=== PATIENT | male | born 1945 | race Caucasian/White ===

== ENCOUNTER 2023-07-26 16:43 | Inpatient (IN) | payer MEDICARE, BC ==
[~2023-07-26] VITALS: Ht 177.8 cm; Wt 94.3 kg
[2023-07-26] MEDS ORDERED: IV NORMAL SALINE 1000 ML BAG IV ONE (17:00)
[2023-07-26 17:35] LABS: BASOPHILS # (AUTO) 0.1 K/UL (0.0-0.2); BASOPHILS % (AUTO) 0.7 % (0.0-2.0); EOSINOPHILS # (AUTO) 0.1 K/uL (0.0-0.7); EOSINOPHILS % (AUTO) 1.1 % (0.0-7.0); HEMATOCRIT 29.2 % (36.7-47.1); HEMOGLOBIN 9.8 g/dL (12.5-16.3); LYMPHOCYTES % (AUTO) 11.1 % (20.5-51.5); MEAN CORPUSCULAR HEMOGLOBIN 31.5 uug (23.8-33.4); MEAN CORPUSCULAR HGB CONC 34 g/dL (32.5-36.3); MONOCYTES # (AUTO) 0.8 K/uL (0.1-1.30); MONOCYTES % (AUTO) 9.8 % (0.0-11.0); NEUTROPHILS # (AUTO) 6.7 K/uL (1.8-8.9); NEUTROPHILS % (AUTO) 77.3 % (38.5-71.5); PLATELET COUNT (AUTO) 164 K/uL (152-348); RED CELL DISTRIBUTION WIDTH 14.3 % (12.1-16.2); WHITE BLOOD COUNT (AUTO) 8.6 K/uL (3.6-10.2)
[2023-07-26 17:39] LABS: DIFFERENTIAL COMMENT 1
[2023-07-26 17:42] LABS: CALCIUM 8.7 mg/dL (8.5-10.1); CARBON DIOXIDE 23 mmol/L (21-32); CHLORIDE 102 mmol/L (98-107); CREATININE 2.1 mg/dL (0.6-1.3); GLUCOSE 137 mg/dL (74-106); POTASSIUM 5.2 mmol/L (3.5-5.1); SODIUM SERUM 135 mmol/L (136-145); UREA NITROGEN, BLOOD 40 mg/dL (7-18)
[2023-07-26 17:51] LABS: ALANINE AMINOTRANSFERASE 24 U/L (16-63); ALBUMIN 3.4 g/dL (3.4-5.0); ALKALINE PHOSPHATASE 58 U/L (50-136); ASPARTATE AMINOTRANSFERASE 12 U/L (15-37); BILIRUBIN,DIRECT 0.1 mg/dL (0.0-0.2); BILIRUBIN,TOTAL 0.3 mg/dL (0.2-1.0); LIPASE 73 U/L (73-393); TOTAL PROTEIN, SERUM 6.4 g/dL (6.4-8.2)
[2023-07-26] MEDS ORDERED: MAGN64TA9 PO (18:23)
[2023-07-26] MEDS ORDERED: AZEL205. BNOSTRILS (18:23)
[2023-07-26] MEDS ORDERED: ALIR75PE6 SQ (18:23)
[2023-07-26] MEDS ORDERED: HYDR100T27 PO (18:23)
[2023-07-26] MEDS ORDERED: UBID100C13 PO (18:23)
[2023-07-26] MEDS ORDERED: SAW500CA2 PO (18:23)
[2023-07-26] MEDS ORDERED: ASPI81TA31 PO (18:23)
[2023-07-26] MEDS ORDERED: CYAN100020 SL (18:23)
[2023-07-26] MEDS ORDERED: BACL5TAB PO (18:23)
[2023-07-26] MEDS ORDERED: LOVAZA PO (18:23)
[2023-07-26] MEDS ORDERED: NIAC10002 PO (18:23)
[2023-07-26] MEDS ORDERED: CREA100P6 MC (18:23)
[2023-07-26] MEDS ORDERED: GLUCOSAMINE (18:23)
[2023-07-26] MEDS ORDERED: TESTIM (18:23)
[2023-07-26] MEDS ORDERED: PROCRIT (18:23)
[2023-07-26] MEDS ORDERED: DULO30CA2 PO (18:23)
[2023-07-26] MEDS ORDERED: PRED1TAB PO (18:23)
[2023-07-26] MEDS ORDERED: DUTASTERIDE (18:23)
[2023-07-26] MEDS ORDERED: MILK500C PO (18:23)
[2023-07-26] MEDS ORDERED: D3 PO (18:23)
[2023-07-26] MEDS ORDERED: AMLO-212 PO (18:23)
[2023-07-26] MEDS ORDERED: MYCO500T PO (18:23)
[2023-07-26] MEDS ORDERED: BISO1TAB8 PO (18:23)
[2023-07-26] MEDS ORDERED: TAMS-3 PO (18:23)
[2023-07-26] MEDS ORDERED: ACET325T53 PO (18:23)
[2023-07-26] MEDS ORDERED: [UNRECOGNIZED DRUG - CODE] MC (18:23)
[2023-07-26] MEDS ORDERED: MORPHINE SULFATE 2 MG/1 ML DISP.SYRIN IV PRN (21:45)
[2023-07-26] MEDS ORDERED: ONDANSETRON 4 MG/2 ML VIAL IV PRN (21:45)
[2023-07-26 22:25] VITALS: BP 138/65; TEMP 98; O2SAT 98
[2023-07-26] MEDS: IV D5/ 0.9% NACL 1,000 ML IV PRN (23:14)
[2023-07-27 02:48] LABS: *BILIRUBIN,URIN NEGATIVE (NEGATIVE); *BLOOD, URINE NEGATIVE (NEGATIVE); *CLARITY,URINE CLEAR (CLEAR); *COLOR,URINE YELLOW (YELLOW); *KETONES,URINE NEGATIVE (NEGATIVE); *PROTEIN,URINE 1+ (NEGATIVE); *UROBILINOGEN,URINE 0.2 E.U./dl (NORMAL); LEUKOCYTE ESTERASE ,URINE NEGATIVE (NEGATIVE); NITRITE, URINE NEGATIVE (NEGATIVE); UGLUCOSE NEGATIVE (NEGATIVE)
[2023-07-27 04:00] VITALS: BP 138/69; TEMP 98.6; O2SAT 96
[2023-07-27 04:55] VITALS: BP 138/69; TEMP 98.6; O2SAT 98
[2023-07-27] MEDS ORDERED: CEFAZOLIN 1 G VIAL ONE (07:10)
[2023-07-27] MEDS ORDERED: PROPOFOL 200 MG/20 ML BOTTLE ONE (07:10)
[2023-07-27] MEDS ORDERED: EPHEDRINE SULFATE 50 MG/ML AMPUL ONE (07:10)
[2023-07-27] MEDS ORDERED: GLYCOPYRROLATE 0.2 MG/ML VIAL ONE (07:10)
[2023-07-27] MEDS ORDERED: VECURONIUM BROMIDE 10 MG VIAL IV ONE (07:10)
[2023-07-27] MEDS ORDERED: NEOSTIGMINE METHYLSULFATE 10 MG/10 ML VIAL ONE (07:10)
[2023-07-27] MEDS ORDERED: ONDANSETRON 4 MG/2 ML VIAL ONE (07:10)
[2023-07-27] MEDS ORDERED: DEXAMETHASONE SOD PHOSPHATE 4 MG INJ ONE (07:10)
[2023-07-27] MEDS ORDERED: LIDOCAINE-MPF 2% 5 ML VIAL ONE (07:10)
[2023-07-27] MEDS ORDERED: SEVOFLURANE 250 ML BOTTLE ONE (08:43)
[2023-07-27] MEDS ORDERED: FENTANYL CITRATE 100 MCG/2 ML AMPUL ONE ×2 (08:49→09:47)
[2023-07-27] MEDS: PANTOPRAZOLE SODIUM 40 MG VIAL IV SCH (09:00)
[2023-07-27] MEDS ORDERED: BACITRACIN/POLYMYXIN B OINT 15 GM TUBE ONE (09:05)
[2023-07-27] MEDS ORDERED: BUPIVACAINE/EPI PF 0.25% 10 ML VIAL IJ ONE (09:05)
[2023-07-27] MEDS ORDERED: BUPIVACAINE PF 0.5% 30 ML VIAL ONE (09:05)
[2023-07-27] MEDS ORDERED: HYDROCODONE/APAP 10-325 MG TABLET PO PRN (10:30)
[2023-07-27] MEDS ORDERED: ACETAMINOPHEN 325 MG TABLET ONE (10:31)
[2023-07-27 11:57] VITALS: BP 145/66; TEMP 97.9; O2SAT 97
[2023-07-27] MEDS ORDERED: TAMSULOSIN HCL 0.4 MG CAP.SR.24H PO ONE (12:00)
[2023-07-27] MEDS ORDERED: ACETAMINOPHEN 325 MG TABLET PO PRN (12:30)
[2023-07-27] MEDS ORDERED: HCTZ PO SCH (12:30)
[2023-07-27] MEDS ORDERED: MAGNESIUM CHLORIDE 64 MG TABLET.SA PO SCH (12:30)
[2023-07-27] MEDS ORDERED: BISOPROLOL FUMARATE PO SCH (12:30)
[2023-07-27] MEDS ORDERED: [UNRECOGNIZED DRUG - OTHER] PO SCH (12:30)
[2023-07-27] MEDS: IV D5/ 0.9% NACL 1,000 ML IV PRN (13:11)
[2023-07-27 13:23] LABS: BASOPHILS % (AUTO) 0.3 % (0.0-2.0); EOSINOPHILS % (AUTO) 0.1 % (0.0-7.0); HEMATOCRIT 28.9 % (36.7-47.1); HEMOGLOBIN 9.5 g/dL (12.5-16.3); LYMPHOCYTES # (AUTO) 0.4 K/uL (0.8-4.8); MEAN CORPUSCULAR HEMOGLOBIN 31.3 uug (23.8-33.4); MEAN CORPUSCULAR HGB CONC 33 g/dL (32.5-36.3); MEAN CORPUSCULAR VOLUME 94.9 fL (73.0-96.2); MONOCYTES # (AUTO) 0.3 K/uL (0.1-1.30); MONOCYTES % (AUTO) 2.7 % (0.0-11.0); NEUTROPHILS # (AUTO) 9.6 K/uL (1.8-8.9); NEUTROPHILS % (AUTO) 92.9 % (38.5-71.5); PLATELET COUNT (AUTO) 150 K/uL (152-348); RED BLOOD CELL COUNT(AUTO) 3.04 MIL/uL (4.06-5.63); RED CELL DISTRIBUTION WIDTH 14.6 % (12.1-16.2); WHITE BLOOD COUNT (AUTO) 10.3 K/uL (3.6-10.2)
[2023-07-27 13:39] LABS: DIFFERENTIAL COMMENT 1
[2023-07-27 13:49] LABS: IRON, SERUM 64 ug/dL (50-175)
[2023-07-27 14:20] LABS: ALANINE AMINOTRANSFERASE 22 U/L (16-63); ALBUMIN 3.4 g/dL (3.4-5.0); ALKALINE PHOSPHATASE 61 U/L (50-136); ASPARTATE AMINOTRANSFERASE 10 U/L (15-37); BILIRUBIN,TOTAL 0.3 mg/dL (0.2-1.0); CARBON DIOXIDE 19 mmol/L (21-32); CHLORIDE 104 mmol/L (98-107); CREATININE 2.1 mg/dL (0.6-1.3); GLUCOSE 160 mg/dL (74-106); MAGNESIUM 1.8 mg/dL (1.8-2.4); PHOSPHOROUS 4.1 mg/dL (2.5-4.9); POTASSIUM 5.1 mmol/L (3.5-5.1); SODIUM SERUM 137 mmol/L (136-145); TOTAL PROTEIN, SERUM 6.4 g/dL (6.4-8.2); UREA NITROGEN, BLOOD 31 mg/dL (7-18)
[2023-07-27] MEDS: MYCOPHENOLATE MOFETIL 250 MG CAPSULE PO SCH ×2 (14:26→20:37)
[2023-07-27] MEDS: predniSONE 1 MG TABLET PO SCH (14:26)
[2023-07-27] MEDS: AMLODIPINE 5 MG TABLET PO SCH (14:27)
[2023-07-27] MEDS: ATENOLOL 50 MG TABLET PO SCH (14:27)
[2023-07-27] MEDS: HYDROCHLOROTHIAZIDE 25 MG TABLET PO SCH (14:28)
[2023-07-27] MEDS: DOCUSATE SODIUM 100 MG CAPSULE PO SCH ×2 (14:28→20:37)
[2023-07-27] MEDS: CHOLECALCIFEROL 1,000 UNIT TABLET PO SCH (14:31)
[2023-07-27 16:19] VITALS: BP 135/69; TEMP 97.8; O2SAT 97
[2023-07-27] MEDS ORDERED: TAMSULOSIN HCL 0.4 MG CAP.SR.24H PO SCH (17:00)
[2023-07-27] MEDS: hydrALAZINE HCL 50 MG TABLET PO SCH (17:31)
[2023-07-27] MEDS: BACLOFEN 10 MG TABLET PO SCH (17:32)
[2023-07-27] MEDS: DUTASTERIDE 0.5 MG CAPSULE PO SCH (20:37)
[2023-07-27] MEDS ORDERED: NIACIN 500 MG TABLET PO SCH ×2 (21:00)
[2023-07-27 21:57] VITALS: BP 144/61; TEMP 97.9; O2SAT 96
[2023-07-28] VITALS (7 sets, daily range): BP systolic 128–142; BP diastolic 55–70; TEMP 98–98.9; O2SAT 96–97
[2023-07-28] MEDS ORDERED: TRAMADOL HCL 50 MG TABLET PO PRN (05:30)
[2023-07-28 07:43] LABS: BASOPHILS % (AUTO) 0.4 % (0.0-2.0); EOSINOPHILS # (AUTO) 0.1 K/uL (0.0-0.7); EOSINOPHILS % (AUTO) 0.8 % (0.0-7.0); HEMATOCRIT 24.1 % (36.7-47.1); HEMOGLOBIN 8.3 g/dL (12.5-16.3); LYMPHOCYTES # (AUTO) 0.9 K/uL (0.8-4.8); LYMPHOCYTES % (AUTO) 9.6 % (20.5-51.5); MEAN CORPUSCULAR HEMOGLOBIN 32.6 uug (23.8-33.4); MEAN CORPUSCULAR HGB CONC 35 g/dL (32.5-36.3); MEAN CORPUSCULAR VOLUME 94.1 fL (73.0-96.2); MONOCYTES # (AUTO) 1.2 K/uL (0.1-1.30); MONOCYTES % (AUTO) 12.5 % (0.0-11.0); NEUTROPHILS # (AUTO) 7.2 K/uL (1.8-8.9); NEUTROPHILS % (AUTO) 76.7 % (38.5-71.5); PLATELET COUNT (AUTO) 134 K/uL (152-348); RED BLOOD CELL COUNT(AUTO) 2.56 MIL/uL (4.06-5.63); RED CELL DISTRIBUTION WIDTH 14.2 % (12.1-16.2); WHITE BLOOD COUNT (AUTO) 9.4 K/uL (3.6-10.2)
[2023-07-28 07:48] LABS: DIFFERENTIAL COMMENT 1
[2023-07-28 07:49] LABS: ALANINE AMINOTRANSFERASE 20 U/L (16-63); ALBUMIN 3.3 g/dL (3.4-5.0); ALKALINE PHOSPHATASE 56 U/L (50-136); ASPARTATE AMINOTRANSFERASE 11 U/L (15-37); BILIRUBIN,TOTAL 0.4 mg/dL (0.2-1.0); CALCIUM 8.1 mg/dL (8.5-10.1); CARBON DIOXIDE 24 mmol/L (21-32); CHLORIDE 103 mmol/L (98-107); CREATININE 2.1 mg/dL (0.6-1.3); GLUCOSE 115 mg/dL (74-106); MAGNESIUM 1.8 mg/dL (1.8-2.4); PHOSPHOROUS 3.8 mg/dL (2.5-4.9); POTASSIUM 4.9 mmol/L (3.5-5.1); SODIUM SERUM 136 mmol/L (136-145); TOTAL PROTEIN, SERUM 6.1 g/dL (6.4-8.2); UREA NITROGEN, BLOOD 27 mg/dL (7-18)
[2023-07-28] MEDS: PANTOPRAZOLE SODIUM 40 MG VIAL IV SCH (08:52)
[2023-07-28] MEDS: HYDROCHLOROTHIAZIDE 25 MG TABLET PO SCH (08:54)
[2023-07-28] MEDS: DULOXETINE 30 MG CAPSULE.DR PO SCH (08:54)
[2023-07-28] MEDS: AMLODIPINE 5 MG TABLET PO SCH (08:54)
[2023-07-28] MEDS: CHOLECALCIFEROL 1,000 UNIT TABLET PO SCH (08:55)
[2023-07-28] MEDS: ATENOLOL 50 MG TABLET PO SCH (08:55)
[2023-07-28] MEDS: DOCUSATE SODIUM 100 MG CAPSULE PO SCH ×2 (08:55→20:30)
[2023-07-28] MEDS: ASPIRIN 81 MG TAB.CHEW PO SCH (08:55)
[2023-07-28] MEDS: BACLOFEN 10 MG TABLET PO SCH ×2 (08:56→16:32)
[2023-07-28] MEDS: MYCOPHENOLATE MOFETIL 250 MG CAPSULE PO SCH ×2 (09:03→20:28)
[2023-07-28] MEDS: predniSONE 1 MG TABLET PO SCH (09:03)
[2023-07-28] MEDS: hydrALAZINE HCL 50 MG TABLET PO SCH ×2 (09:07→16:31)
[2023-07-28] MEDS ORDERED: DOCU-141 PO (09:48)
[2023-07-28 11:54] LABS: CREATINE KINASE, TOTAL 194 U/L (39-308)
[2023-07-28] MEDS: DUTASTERIDE 0.5 MG CAPSULE PO SCH (20:30)
[2023-07-28] MEDS ORDERED: TAMSULOSIN HCL 0.4 MG CAP.SR.24H PO SCH (21:00)
[2023-07-29 04:30] VITALS: BP 147/64; TEMP 98.6; O2SAT 99
[2023-07-29 08:16] VITALS: BP 143/65; TEMP 98.8; O2SAT 97
[2023-07-29 09:30] LABS: BASOPHILS % (AUTO) 0.5 % (0.0-2.0); EOSINOPHILS # (AUTO) 0.2 K/uL (0.0-0.7); EOSINOPHILS % (AUTO) 1.9 % (0.0-7.0); HEMATOCRIT 27.7 % (36.7-47.1); HEMOGLOBIN 9.6 g/dL (12.5-16.3); LYMPHOCYTES # (AUTO) 0.9 K/uL (0.8-4.8); LYMPHOCYTES % (AUTO) 10.1 % (20.5-51.5); MEAN CORPUSCULAR HEMOGLOBIN 32.3 uug (23.8-33.4); MEAN CORPUSCULAR HGB CONC 35 g/dL (32.5-36.3); MEAN CORPUSCULAR VOLUME 93.4 fL (73.0-96.2); MONOCYTES # (AUTO) 1.1 K/uL (0.1-1.30); MONOCYTES % (AUTO) 12.1 % (0.0-11.0); NEUTROPHILS # (AUTO) 6.9 K/uL (1.8-8.9); NEUTROPHILS % (AUTO) 75.4 % (38.5-71.5); PLATELET COUNT (AUTO) 137 K/uL (152-348); RED BLOOD CELL COUNT(AUTO) 2.97 MIL/uL (4.06-5.63); WHITE BLOOD COUNT (AUTO) 9.2 K/uL (3.6-10.2)
[2023-07-29 09:47] LABS: DIFFERENTIAL COMMENT 1
[2023-07-29] MEDS: PANTOPRAZOLE SODIUM 40 MG VIAL IV SCH (10:29)
[2023-07-29] MEDS: CHOLECALCIFEROL 1,000 UNIT TABLET PO SCH (10:32)
[2023-07-29] MEDS: HYDROCHLOROTHIAZIDE 25 MG TABLET PO SCH (10:33)
[2023-07-29] MEDS: MYCOPHENOLATE MOFETIL 250 MG CAPSULE PO SCH (10:33)
[2023-07-29] MEDS: DULOXETINE 30 MG CAPSULE.DR PO SCH (10:34)
[2023-07-29] MEDS: DOCUSATE SODIUM 100 MG CAPSULE PO SCH (10:34)
[2023-07-29] MEDS: predniSONE 1 MG TABLET PO SCH (10:35)
[2023-07-29] MEDS: ATENOLOL 50 MG TABLET PO SCH (10:35)
[2023-07-29] MEDS: BACLOFEN 10 MG TABLET PO SCH (10:36)
[2023-07-29] MEDS: ASPIRIN 81 MG TAB.CHEW PO SCH (10:47)
[2023-07-29] MEDS: hydrALAZINE HCL 50 MG TABLET PO SCH (10:47)
[2023-07-29] MEDS: AMLODIPINE 5 MG TABLET PO SCH (10:47)
[2023-07-29 11:30] VITALS: BP 125/61; TEMP 98.8; O2SAT 98
[2023-07-30 07:06] LABS: PTH, INTACT 93 pg/mL (15-65)
[2023-07-30] MEDS ORDERED: PANTOPRAZOLE SODIUM 40 MG TABLET.DR PO SCH (09:00)
[2023-07-31 08:06] LABS: A/G RATIO 1.3 (0.7-1.7); ALBUMIN 3.1 g/dL (2.9-4.4); ALPHA-1-GLOBULIN 0.2 g/dL (0.0-0.4); ALPHA-2-GLOBULIN 0.7 g/dL (0.4-1.0); BETA GLOBULIN 0.8 g/dL (0.7-1.3); GAMMA GLOBULIN 0.5 g/dL (0.4-1.8); GLOBULIN, TOTAL 2.3 g/dL (2.2-3.9); M-SPIKE Not Observed g/dL (Not Observed)
== END 2023-07-29 13:30 | disposition home or self-care (01) | DRG 987 ==
LOC: ER 16:44 → MEDSURG3 20:46 → UNDOADMIN 21:46 → MEDSURG3 21:46
PROVIDERS: ADMIT Nurse Practitioner Acute Care; ATTEND Nurse Practitioner Acute Care
PROC: 06BY0ZC Excision of Hemorrhoidal Plexus, Open Approach (ICD-10-PCS; 2023-07-27)
PROC: 30233N1 Transfusion of Nonautologous Red Blood Cells into Peripheral Vein, Percutaneous Approach (ICD-10-PCS; principal; 2023-07-28)
DX: N99.820 Postprocedural hemorrhage of a genitourinary system organ or structure following a genitourinary system procedure (principal); N17.0 Acute kidney failure with tubular necrosis; D62 Acute posthemorrhagic anemia; N13.8 Other obstructive and reflux uropathy; Y83.8 Other surgical procedures as the cause of abnormal reaction of the patient, or of later complication, without mention of misadventure at the time of the procedure; Y81.8 Miscellaneous general- and plastic-surgery devices associated with adverse incidents, not elsewhere classified; Y92.009 Unspecified place in unspecified non-institutional (private) residence as the place of occurrence of the external cause; K64.8 Other hemorrhoids; K64.4 Residual hemorrhoidal skin tags; D63.1 Anemia in chronic kidney disease; E78.5 Hyperlipidemia, unspecified; K62.3 Rectal prolapse; E86.0 Dehydration; E87.5 Hyperkalemia; I25.10 Atherosclerotic heart disease of native coronary artery without angina pectoris; K57.90 Diverticulosis of intestine, part unspecified, without perforation or abscess without bleeding; N18.9 Chronic kidney disease, unspecified; N40.1 Benign prostatic hyperplasia with lower urinary tract symptoms; Z79.82 Long term (current) use of aspirin; K80.20 Calculus of gallbladder without cholecystitis without obstruction; K76.89 Other specified diseases of liver; N32.0 Bladder-neck obstruction; R55 Syncope and collapse; I12.9 Hypertensive chronic kidney disease with stage 1 through stage 4 chronic kidney disease, or unspecified chronic kidney disease; Z95.5 Presence of coronary angioplasty implant and graft; I95.9 Hypotension, unspecified
CPT/HCPCS: 36415; 71045; 83550; 83605; 83690; 83735; 83970; 84100; 84155; 84165; 84484; 85025; 85730; 86850; 86900; 86901; 86920; 93005; 94660; A4649; A4663; C9113; G0378; J0690; J1100; J2405; J3010; J3490; J7040; J7042; J7512; J7517; P9016